=== PATIENT | female | born 1950 | race Caucasian/White ===

== ENCOUNTER → 2024-02-05 13:57 | Outpatient (REF) | payer OTHER, SELFPAY | LOC: WDC 13:57 | PROVIDERS: ATTENDING PHYSICIAN Family Medicine | DX: Z12.31 Encounter for screening mammogram for malignant neoplasm of breast (principal) | CPT/HCPCS: 77063; 77067 ==

== ENCOUNTER → 2024-02-21 14:55 | Outpatient (REF) | payer OTHER, SELFPAY | LOC: RAD 14:55 | PROVIDERS: ATTENDING PHYSICIAN Family Medicine | DX: M79.606 Pain in leg, unspecified (principal) | CPT/HCPCS: 73590 ==

== ENCOUNTER → 2024-02-22 13:18 | Outpatient (REF) | payer OTHER, SELFPAY | LOC: RAD 13:18 | PROVIDERS: ATTENDING PHYSICIAN Family Medicine | DX: R60.9 Edema, unspecified (principal); M25.571 Pain in right ankle and joints of right foot; R60.0 Localized edema; M79.606 Pain in leg, unspecified | CPT/HCPCS: 72110; 73610; 93970 ==

== ENCOUNTER → 2025-02-06 11:16 | Outpatient (REF) | payer OTHER, SELFPAY | LOC: WDC 11:16 | PROVIDERS: ATTENDING PHYSICIAN Family Medicine | DX: Z12.31 Encounter for screening mammogram for malignant neoplasm of breast (principal) | CPT/HCPCS: 77063; 77067 ==

== ENCOUNTER → 2025-03-04 08:51 | Outpatient (REF) | payer OTHER, SELFPAY | LOC: RAD 08:51 | PROVIDERS: ATTENDING PHYSICIAN Family Medicine | DX: Z13.820 Encounter for screening for osteoporosis (principal); M85.88 Other specified disorders of bone density and structure, other site; Z78.0 Asymptomatic menopausal state | CPT/HCPCS: 77080 ==

== ENCOUNTER 2025-08-23 10:28 | Emergency (ER) | payer OTHER, SELFPAY ==
[2025-08-23 10:30] VITALS: BP 187/95
--- NOTE | 2025-08-23 10:49 | ED.GENMED ---
History of Present Illness
General
Chief Complaint: Chest Problem
Source: patient
Exam Limitations: none
Time Seen by Provider: 08/23/25 10:43
History of Present Illness
History of Present Illness:
75-year-old female not anticoagulated presents with anterior chest wall pain. She was hugged by a friend she has not seen in quite some time yesterday and she felt a crack in her chest. It took the breath away from her initially. Since then she
has had pain to the front and center of her chest that is worse with breathing. She denies shortness of breath. The pain does not radiate to the back. No abdominal pain. No other complaints at this time
Past History
Past History
ED Past Medical History: Other (Right breast cancer)
ED Past Surgical History: Cholecystectomy and Other
Social History
Personal: Single
Employment: Employed
Phy Exam
Physical Exam
Physical Exam:
General: Well-appearing female no acute respiratory distress
HEENT: Normal cephalic atraumatic
Heart: Regular rate and rhythm lungs: Clear no wheeze
Abdomen is soft nontender
MSK: Tender over the mid to lower portion of the sternum anteriorly without step-off or deformity
Course
Orders/Labs/Results
Orders:
Orders
08/23/25 10:33
Electrocardiogram (*1) Urgent
Reason for Study: Chest Pain
EKG- Treatment ONCE
08/23/25 10:49
CR Chest - 2 Views Urgent
Comment:
Reason For Exam: pain over sternum
Vital Signs
Initial and Last Documented VS:
Initial Vital Signs
Temp Pulse Resp BP Pulse Ox
97.3 F 85 18 187/95 97
08/23/25 10:30 08/23/25 10:30 08/23/25 10:30 08/23/25 10:30 08/23/25 10:30
Last Documented Vital Signs
Temp Pulse Resp BP Pulse Ox
97.3 F 85 18 187/95 97
08/23/25 10:30 08/23/25 10:30 08/23/25 10:30 08/23/25 10:30 08/23/25 10:52
MDM/Problems Addressed
Differential Diagnosis Includes:
Anterior chest pain after being hugged yesterday and feeling a crack. Consider muscle strain versus fracture will check chest x-ray for pneumothorax. Patient's pain is reproducible I do suspect musculoskeletal related discomfort rather than
cardiac pain
*Pulse Oximetry
SaO2: 97
Oxygen Mode of Delivery: Room air
Patient hypoxic: no
*Critical Care Note
Total Time (30-74mins, 75-104mins- exclusive of procedures): Not Applicable
Update Note
Update Note:
CXR reviewed . No obvious fracture/pneumothorax
Question muscular strain. Recommended ibuprofen or Tylenol. Stable for discharge
ED Attending Note
-
Portions of this chart may have been created with voice recognition software.� Occasional wrong word or��sound alike� substitutions may have occurred due to the inherent limitations of voice recognition software.
Discharge Plan
Departure
Patient Disposition: Home (Routine Discharge)
Date of Disposition: 08/23/25
Time of Disposition: 12:14
Patient with high blood pressure during this ER visit?: No
Discharge Problem:
Strain of chest wall
Prescriptions:
No Action
anastrozole 1 MG tablet
1 mg PO DAILY
ergocalciferol (vitamin D2) 400 UNIT tablet
PO
Patient Comments:
patient does not know dose
bee pollen 500 MG tablet,chewable
PO
Patient Comments:
Patient does not know dose
calcium carbonate [calcium] 500 MG tablet
500 mg PO
ranitidine HCl [Zantac] 150 MG tablet
150 mg PO
ibuprofen 400 MG tablet
400 mg PO
sertraline 25 MG/1.25 ML concentrate
50 mg PO
Paxlovid 300 mg (150 mg x 2)-100 mg tablet
See Rx Instructions .ROUTE .COMPLEX Qty: 30 0RF
Rx Instructions:
take TWO 150 mg tablets of nirmatrelvir with ONE 100 mg tablet of ritonavir twice daily for 5 days
Referrals:
UNKNOWN - PT NOT,INTERVIEWE [Family Provider]
Activity Restrictions/Additional Instructions:
Use ibuprofen or Tylenol for pain. Return if worse otherwise follow-up with your doctor
Interventions
Interventions:
*Risk Screen - Suicide Last Done: 08/23/25 10:30
*General Assessment Last Done: 08/23/25 10:30
*Neglect/Abuse Screening Last Done: 08/23/25 10:30
*ED- Fall Risk Assessment Last Done: 08/23/25 10:45
ED- Cardiac Assessment Last Done: 08/23/25 10:45
ED- Pulmonary Assessment Last Done: 08/23/25 10:45
Discharge Date and Time
Print Language: PASHTO
[2025-08-23 12:20] VITALS: BP 154/87
== END 2025-08-23 12:20 | disposition home or self-care (01) ==
LOC: EMR 10:28
PROVIDERS: EMERGENCY PHYSICIAN Emergency Medicine
DX: S29.011A Strain of muscle and tendon of front wall of thorax, initial encounter (principal); X58.XXXA Exposure to other specified factors, initial encounter
CPT/HCPCS: 99284; 71046; 93005